=== PATIENT | male | born 1960 | race Caucasian/White ===

== ENCOUNTER 2016-07-16 17:56 | Emergency (ER) | payer OTHER ==
[~2016-07-16] VITALS: Ht 175.3 cm; Wt 79.4 kg
--- NOTE | 2016-07-16 19:19 | PHYS DOC ---
Past Medical History Past Medical History: Hypertension Additional Past Surgical Histo: bilat knee, Left hip, back Alcohol Use: Occasionally Drug Use: None Adult General Chief Complaint Chief Complaint: HYPERTENSION HPI HPI He is a pleasant asymptomatic 56-year-old male who presents with hypertension he wanted her checked out. Apparently he is about to lose his insurance he is not on any medication as been off his medication which is likely on accommodation H of Hydrocort eyes and lisinopril he describes. He is not having any chest pain, shortness of breath, vision changes, headache, hematuria or problems urinating abdominal pain or other complaints. He said he wants to be checked out before his insurance runs out. Review of Systems Review of Systems Constitutional: Denies fever or chills [] Eyes: Denies change in visual acuity, redness, or eye pain [] HENT: Denies nasal congestion or sore throat [] Respiratory: Denies cough or shortness of breath [] Cardiovascular: No additional information not addressed in HPI [] GI: Denies abdominal pain, nausea, vomiting, bloody stools or diarrhea [] : Denies dysuria or hematuria [] Musculoskeletal: Denies back pain or joint pain [] Integument: Denies rash or skin lesions [] Neurologic: Denies headache, focal weakness or sensory changes [] Endocrine: Denies polyuria or polydipsia [] Physical Exam Physical Exam Constitutional: Well developed, well nourished, no acute distress, non-toxic appearance. [] HENT: Normocephalic, atraumatic, bilateral external ears normal, oropharynx moist, no oral exudates, nose normal. [] Eyes: PERRLA, EOMI, conjunctiva normal, no discharge. [] Neck: Normal range of motion, no tenderness, supple, no stridor. [] Cardiovascular:Heart rate regular rhythm, no murmur [] Lungs & Thorax: Bilateral breath sounds clear to auscultation [] Abdomen: Bowel sounds normal, soft, no tenderness, no masses, no pulsatile masses. [] Skin: Warm, dry, no erythema, no rash. [] Back: No tenderness, no CVA tenderness. [] Extremities: No tenderness, no cyanosis, no clubbing, ROM intact, no edema. [] Neurologic: Alert and oriented X 3, normal motor function, normal sensory function, no focal deficits noted. [] Psychologic: Affect normal, judgement normal, mood normal. [] Current Patient Data Vital Signs Vital Signs Date Time Temp Pulse Resp B/P (MAP) Pulse Ox O2 Delivery O2 Flow Rate FiO2 07/16/16 19:03 98.8 89 18 178/91 (120) 99 Room Air 98.8 Lab Values Laboratory Tests Test 07/16/16 19:10 White Blood Count 7.1 x10^3/uL (4.0-11.0) Red Blood Count 4.52 x10^6/uL (4.30-5.70) Hemoglobin 15.5 g/dL (13.0-17.5) Hematocrit 45.2 % (39.0-53.0) Mean Corpuscular Volume 100 fL (79-100) Mean Corpuscular Hemoglobin 34 pg (25-35) Mean Corpuscular Hemoglobin Concent 34 g/dL (31-37) Red Cell Distribution Width 13.1 % (11.5-14.5) Platelet Count 199 x10^3/uL (140-400) Neutrophils (%) (Auto) 57 % (31-73) Lymphocytes (%) (Auto) 26 % (24-48) Monocytes (%) (Auto) 14 % (0-9) H Eosinophils (%) (Auto) 3 % (0-3) Basophils (%) (Auto) 1 % (0-3) Neutrophils # (Auto) 4.0 x10^3uL (1.8-7.7) Lymphocytes # (Auto) 1.8 x10^3/uL (1.0-4.8) Monocytes # (Auto) 1.0 x10^3/uL (0.0-1.1) Eosinophils # (Auto) 0.2 x10^3/uL (0.0-0.7) Basophils # (Auto) 0.0 x10^3/uL (0.0-0.2) Sodium Level 143 mmol/L (136-145) Potassium Level 4.4 mmol/L (3.5-5.1) Chloride Level 105 mmol/L (98-107) Carbon Dioxide Level 30 mmol/L (21-32) Anion Gap 8 (6-14) Blood Urea Nitrogen 17 mg/dL (8-26) Creatinine 0.8 mg/dL (0.7-1.3) Estimated GFR (Cockcroft-Gault) 99.3 Glucose Level 129 mg/dL (70-99) H Calcium Level 9.6 mg/dL (8.5-10.1) Total Bilirubin 0.5 mg/dL (0.2-1.0) Direct Bilirubin 0.1 mg/dL (0.0-0.2) Aspartate Amino Transferase (AST) 78 U/L (15-37) H Alanine Aminotransferase (ALT) 94 U/L (16-63) H Alkaline Phosphatase 68 U/L (46-116) Creatine Kinase 235 U/L (39-308) Creatine Kinase MB (Mass) 4.0 ng/mL (0.0-3.6) H Creatine Kinase MB Relative Index 1.7 % (0-4) ND-Jhm-W-Type Natriuretic Peptide 17 pg/mL (0-124) Total Protein 8.1 g/dL (6.4-8.2) Albumin 4.2 g/dL (3.4-5.0) Laboratory Tests 07/16/16 19:10 Laboratory Tests 07/16/16 19:10 EKG EKG [] Patient's EKG timed at 1620 4 PM 07/16/2016 demonstrates heart rate of 80 normal sinus rhythm with left atrial enlargement noted in V2 P wave greater than 2 mV with width and length patient's MD interval was normal QRS is normal QTC is normal by Dr. Edgar. Radiology/Procedures Radiology/Procedures [] Two-view chest x-ray dated 07/16/2016 1944. Tortuous aorta, there is some significant scoliosis noted lung flynn are otherwise normal with no evidence of effusion or infiltrate patient does demonstrate some osteoporosis as well without evidence of fracture or pneumothorax. Course & Med Decision Making Course & Med Decision Making Pertinent Labs and Imaging studies reviewed. (See chart for details) His hypertensive on arrival otherwise vital signs are exam are completely normal as well as his peripheral exam with pulses that are intact patient has good capillary refill. Patient has neck and lung exam. Patient's laboratory work is unremarkable for signs of cardiac ischemia. Patient's only elevated at [facility] is hyperglycemia which is not really significant given the fact that patient is stressed. Patient's. Creatinine are normal, EKG is unremarkable for signs of ischemia, this portion patient is symptom-free which is concerned about his blood pressure and wanted medications for at least the next 60 days while he's between [employer] polices Impression: HTN Disposition: PCP FU, placed on HCTZ and Lisinopril combo [] Carmelaon Disclaimer Dragon Disclaimer This electronic medical record was generated, in whole or in part, using a voice recognition dictation system. Departure Departure Impression: Primary Impression: Hypertension Disposition: HOME, SELF-CARE Condition: IMPROVED Referrals: NO PCP (PCP) Patient Instructions: Hypertension Additional Instructions: please return for any new or increased symptoms, shortness of breath, chest pain , decreased urine output, or if you have any questions or concerns Scripts Lisinopril/Hydrochlorothiazide (LISINOPRIL-HCTZ 20-12.5 MG TAB) 1 Each Tablet 1 TAB PO DAILY, #90 TAB 1 Refill Prov: MARE EDGAR MD 07/16/16 MARE EDGAR MD July 16, 2016 19:19
[2016-07-16 19:27] LABS: BASO % 1 % (0-3); EOS % 3 % (0-3); HEMATOCRIT 45.2 % (39.0-53.0); HEMOGLOBIN 15.5 g/dL (13.0-17.5); LYMPH # 1.8 x10^3/uL (1.0-4.8); LYMPH % 26 % (24-48); MEAN CORPUSCULAR HEMOGLOBIN 34 pg (25-35); MEAN CORPUSCULAR HGB CONC 34 g/dL (31-37); MEAN CORPUSCULAR VOLUME 100 fL (79-100); MONO % 14 % (0-9); NEUT % 57 % (31-73); PLATELET COUNT 199 x10^3/uL (140-400); RED BLOOD COUNT 4.52 x10^6/uL (4.30-5.70); RED CELL DISTRIBUTION WIDTH 13.1 % (11.5-14.5); WHITE BLOOD COUNT 7.1 x10^3/uL (4.0-11.0)
[2016-07-16 19:31] VITALS: BP 163/93
[2016-07-16 19:39] LABS: CALCIUM 9.6 mg/dL (8.5-10.1); CREATININE 0.8 mg/dL (0.7-1.3); GFR 99.3; POTASSIUM 4.4 mmol/L (3.5-5.1)
[2016-07-16 19:45] LABS: ALBUMIN 4.2 g/dL (3.4-5.0); DIRECT BILIRUBIN 0.1 mg/dL (0.0-0.2); TOTAL BILIRUBIN 0.5 mg/dL (0.2-1.0); TOTAL PROTEIN 8.1 g/dL (6.4-8.2)
[2016-07-16 19:45] LABS: BILIRUBIN,URINE NEGATIVE (NEG); GLUCOSE,URINE NEGATIVE (NEG); NITRITE,URINE NEGATIVE (NEG); PH,URINE 6.5; PROTEIN,URINE NEGATIVE (NEG-TRACE); UROBILINOGEN,URINE 0.2 mg/dL (0.2 mg/dL)
[2016-07-16 19:59] LABS: BACTERIA,URINE 0 /HPF (0-FEW); RBC,URINE 0 /HPF (0-2)
[2016-07-16] MEDS ORDERED: LISI1TAB5 PO (20:06)
--- NOTE | 2016-07-17 07:06 | EKG ---
[facility] [address] [place] [address] Test Date: 2016-07-16 Test Time: 19:24:00 Pat Name: SCOTT SUTTON Department: Room: Gender: M [employer]: : [id number] Requested By: MARE EDGAR Order Number: [id number] Reading MD: Darrel Ellison Measurements Intervals [place] Rate: 80 P: 30 ND: 156 QRS: 32 QRSD: 88 T: 31 QT: 402 QTc: 467 Interpretive Statements SINUS RHYTHM Electronically Signed On 07-20-2016 12:55:25 CDT by Darrel Ellison
--- NOTE | 2016-07-17 07:56 | RAD ---
Indication hypertension. PA and lateral views of the chest were obtained. No prior imaging is available. The heart and pulmonary vessels appear normal. The lungs are clear. There is no pleural fluid or pneumothorax. There are some degenerative changes in the thoracic spine. Mild scoliosis is noted. IMPRESSION: No acute or focal process seen in the chest
== END 2016-07-16 20:20 | disposition home or self-care (01) ==
LOC: ER 17:56
DX: I10 Essential (primary) hypertension (principal)
CPT/HCPCS: 36415; 71020; 80048; 80076; 81001; 82553; 83880; 85027; 87086; 93005; 99285-25

== ENCOUNTER 2016-11-13 14:46 | Emergency (ER) | payer SELFPAY ==
[~2016-11-13] VITALS: Ht 175.3 cm; Wt 77.1 kg
[~2016-11-13 14:46] MED LIST: LISI1TAB5 PO
[2016-11-13 14:53] VITALS: BP 163/97
[2016-11-13] MEDS ORDERED: LISI1TAB5 PO (15:01)
--- NOTE | 2016-11-13 15:01 | PHYS DOC ---
Past Medical History Past Medical History: Hypertension Past Surgical History: Other Additional Past Surgical Histo: bilat knee, Left hip, back Alcohol Use: Occasionally Drug Use: None Adult General Chief Complaint Chief Complaint: MEDICATION REFILL HPI HPI Patient is a 56 year old male with history of hypertension who presents today for medication refill for lisinopril/HCTZ which he takes for hypertension. He states is in between jobs and has no medical insurance right now has no PCP. Patient denies any neurological cardiac symptoms. Review of Systems Review of Systems Constitutional: Denies fever or chills [] Eyes: Denies change in visual acuity, redness, or eye pain [] HENT: Denies nasal congestion or sore throat [] Respiratory: Denies cough or shortness of breath [] Cardiovascular: Medication refill for blood pressure medicine GI: Denies abdominal pain, nausea, vomiting, bloody stools or diarrhea [] : Denies dysuria or hematuria [] Musculoskeletal: Denies back pain or joint pain [] Integument: Denies rash or skin lesions [] Neurologic: Denies headache, focal weakness or sensory changes [] Endocrine: Denies polyuria or polydipsia [] Allergies Allergies Allergies Coded Allergies Type Severity Reaction Last Updated Verified No Known Drug Allergies 11/13/16 No Physical Exam Physical Exam Constitutional: Well developed, well nourished, no acute distress, non-toxic appearance. [] HENT: Normocephalic, atraumatic, bilateral external ears normal, oropharynx moist, no oral exudates, nose normal. [] Eyes: PERRLA, EOMI, conjunctiva normal, no discharge. [] Neck: Normal range of motion, no tenderness, supple, no stridor. [] Cardiovascular:Heart rate regular rhythm, no murmur [] Lungs & Thorax: Bilateral breath sounds clear to auscultation [] Abdomen: Bowel sounds normal, soft, no tenderness, no masses, no pulsatile masses. [] Skin: Warm, dry, no erythema, no rash. [] Back: No tenderness, no CVA tenderness. [] Extremities: No tenderness, no cyanosis, no clubbing, ROM intact, no edema. [] Neurologic: Alert and oriented X 3, normal motor function, normal sensory function, no focal deficits noted. [] Psychologic: Affect normal, judgement normal, mood normal. [] Current Patient Data Vital Signs Vital Signs Date Time Temp Pulse Resp B/P (MAP) Pulse Ox O2 Delivery O2 Flow Rate FiO2 11/13/16 14:53 98.1 79 18 97 Room Air 98.1 EKG EKG [] Radiology/Procedures Radiology/Procedures [] Course & Med Decision Making Course & Med Decision Making Pertinent Labs and Imaging studies reviewed. (See chart for details) Patient is in the ED for refill of lisinopril/HCTZ. Her workup was also given to patient. Blood pressure was 163/97 prior to discharge. He was instructed to establish care with a clinic for follow-up. He is in between jobs and has no medical insurance. Local clinic list provided Dragon Disclaimer SetJam Disclaimer This electronic medical record was generated, in whole or in part, using a voice recognition dictation system. Departure Departure Impression: Primary Impression: Medication refill Additional Impression: Hypertension Disposition: HOME, SELF-CARE Condition: STABLE Referrals: NO PCP (PCP) Please establish care with a primary care doctor from the clinic list provided they see patients with no medical insurance Patient Instructions: Hypertension Additional Instructions: You were seen for medication refill for high blood pressure medication. We highly recommend establish care with a primary care doctor for follow-up. Some of this medications will lower your potassium. Please have the primary care doctor's follow-up with this so they can check on it. Scripts Lisinopril/Hydrochlorothiazide (LISINOPRIL-HCTZ 20-12.5 MG TAB) 1 Each Tablet 1 TAB PO DAILY, #90 TAB 1 Refill Prov: SPENCER CARTER APRN 11/13/16 Problem Qualifiers Additional Impression: Hypertension Hypertension type: unspecified Qualified Codes: I10 - Essential (primary) hypertension TANBRIANASPENCER ERIK Nov 13, 2016 15:01
== END 2016-11-13 15:12 | disposition home or self-care (01) ==
LOC: ER 14:46
DX: Z76.0 Encounter for issue of repeat prescription (principal); I10 Essential (primary) hypertension; Z79.899 Other long term (current) drug therapy
CPT/HCPCS: 99283